=== PATIENT | male | born 1960 | race African-American/Black ===

== ENCOUNTER 2019-05-24 06:38 | Emergency (ER) | payer OTHER ==
[~2019-05-24] VITALS: Ht 177.8 cm; Wt 99.8 kg
[2019-05-24] MEDS ORDERED: INDOMETHACIN 5050 M1 PO (06:46)
[2019-05-24] MEDS ORDERED: DIAZEPAM2 MG PO (06:47)
[2019-05-24 07:28] LABS: HEMATOCRIT 36.1 % (42.0-52.0); HEMOGLOBIN 12.3 gm/dL (14.0-18.0); MCH 30.5 pg (26.0-34.0); MCHC 34.1 g/dL (28.0-37.0); MCV 89.2 fL (80.0-100.0); PLATELET COUNT 174 thou/uL (150-400); RBC 4.05 mil/uL (4.50-6.00); RDW 14.5 % (10.5-14.5); WBC 3.4 thou/uL (4.0-11.0)
[2019-05-24 07:47] LABS: CALCIUM 8.8 mg/dL (8.5-10.1); CREATININE 1.1 mg/dL (0.7-1.3)
[2019-05-24 08:03] LABS: ABSOLUTE NEUTROPHILS 1.5 thou/uL (1.4-8.2)
[2019-05-24 08:28] VITALS: BP 122/72
--- NOTE | 2019-05-25 17:59 | EKG ---
[place] [address] [facility] [employer] [place] [address] ELECTROCARDIOGRAM REPORT Name: DONNA STRONG Room #: DEP Gayle#: [id number] Admission: 05/24/19 Attend Phys: Discharge: 05/24/19 Date of : 56 Report #: [id number] THIS REPORT FOR: //name// [facility] ED Test Date: 2019-05-24 Test Time: 06:49:13 Pat Name: DONNA STRONG Department: Room: Gender: M Farm Assistant: INGE : 1960 Requested By: Harry Wayne Order Number: [id number] MD: Young Tavarez Measurements Intervals Loop Rate: 57 P: 45 OR: 188 QRS: 43 QRSD: 87 T: 43 QT: 400 QTc: 390 Interpretive Statements Sinus bradycardia Otherwise normal tracing No previous ECG available for comparison Electronically Signed On 05-25-2019 17:59:37 CDT by Young Tavarez [email or web address] <ELECTRONICALLY SIGNED> By: Young Tavarez MD, [facility] 05/25/19 [id number] Young Tavarez MD, FACC /EPI
== END 2019-05-24 08:28 | disposition home or self-care (01) ==
LOC: ER 06:38
PROVIDERS: Emergency Medicine
DX: R20.2 Paresthesia of skin (principal); E11.9 Type 2 diabetes mellitus without complications; Z79.899 Other long term (current) drug therapy